=== PATIENT | male | born 1975 | race Caucasian/White ===

== ENCOUNTER → 2019-03-01 | Outpatient (CLI) | payer SELFPAY | LOC: RAD 10:33 | DX: M25.512 Pain in left shoulder (principal); W19.XXXA Unspecified fall, initial encounter ==

== ENCOUNTER 2020-07-11 14:37 | Emergency (ER) | payer SELFPAY ==
[~2020-07-11] VITALS: Ht 188 cm; Wt 109.1 kg
[~2020-07-11 14:37] MED LIST: GOOD NEIGHBOR200 M3 PO
[2020-07-11] MEDS ORDERED: NORCO 325 MG-51 TA1 PO (15:27)
[2020-07-11] MEDS ORDERED: ULTRAM50 M1 PO (16:15)
[2020-07-11 16:39] VITALS: BP 136/93
== END 2020-07-11 16:43 | disposition home or self-care (01) ==
LOC: ED 14:37
DX: M25.512 Pain in left shoulder (principal); F17.200 Nicotine dependence, unspecified, uncomplicated; W22.8XXA Striking against or struck by other objects, initial encounter
CPT/HCPCS: J2270

== ENCOUNTER → 2021-05-07 | Outpatient (CLI) | payer SELFPAY ==
[~2021-05-07] MED LIST changes: +LORAZEPAM1 M1 PO; +METOPROLOL SUC100 M1 PO; +NORCO 325 MG-51 TA1 PO; +SERTRALINE50 MG PO; +ULTRAM50 M1 PO
== END ==
LOC: RAD 08:53
DX: G89.29 Other chronic pain (principal); M25.562 Pain in left knee

== ENCOUNTER 2021-09-17 20:27 | Emergency (ER) | payer SELFPAY ==
[~2021-09-17 20:27] MED LIST changes: -LORAZEPAM1 M1 PO; -METOPROLOL SUC100 M1 PO; -SERTRALINE50 MG PO
[2021-09-17 20:58] LABS: BASO # 0.03 K/mm3 (0.02-0.10); EOS # 0.28 K/mm3 (0.04-0.40); EOS % 3.8 % (0.0-4.0); HEMATOCRIT 45.5 % (42.0-52.0); HEMOGLOBIN 15.4 g/dL (13.5-18.0); LYMPH# 2.13 K/mm3 (1.50-4.00); MEAN CELL VOLUME 93 fl (78-100); MEAN CORPUSCULAR HEMOGLOBIN 32 pg (27-31); MEAN CORPUSCULAR HGB CONC 34 g/dL (33-37); MEAN PLATELET VOLUME 10.7 fl (7.4-10.4); MONO # 0.58 K/mm3 (0.20-0.80); NEU # 4.33 K/mm3 (1.40-6.50); PLATELET COUNT 214 K/mm3 (130-400); RED BLOOD COUNT 4.89 M/mm3 (4.20-5.60); RED CELL DISTRIBUTION WIDTH 12.3 % (11.5-14.5); WHITE BLOOD COUNT 7.4 K/mm3 (4.8-10.8)
[2021-09-17 21:08] LABS: ALBUMIN 4.1 g/dL (3.5-5.0); POTASSIUM 4.1 mmol/L (3.5-5.1); SODIUM 143 mmol/L (136-145)
[2021-09-17 21:09] LABS: CALCIUM 9.8 mg/dL (8.3-10.5)
[2021-09-17 21:11] LABS: GLUCOSE 101 mg/dL (75-110); TOTAL PROTEIN 7.5 g/dL (6.4-8.3)
[2021-09-17 21:12] LABS: CARBON DIOXIDE 24 mmol/L (22-29); TOTAL BILIRUBIN 0.2 mg/dL (0.2-1.2)
[2021-09-17 21:13] LABS: ALCOHOL IN-HOUSE 217 mg/dL (<10)
[2021-09-17 21:15] LABS: URINE APPEARANCE CLEAR; URINE BILIRUBIN NEGATIVE (NEGATIVE); URINE BLOOD NEGATIVE (NEGATIVE); URINE COLOR YELLOW; URINE GLUCOSE NEGATIVE (NEGATIVE); URINE KETONE NEGATIVE (NEGATIVE); URINE LEUKOCYTE ESTERASE NEGATIVE (NEGATIVE); URINE NITRATE NEGATIVE (NEGATIVE); URINE PROTEIN(semi-quant) TRACE mg/dL (NEGATIVE); URINE UROBILINOGEN NORMAL (NORMAL)
[2021-09-17 21:16] LABS: URINE MUCUS PRESENT (NOT PRESENT); URINE WBC 0-1 /hpf (0-3)
[2021-09-17 21:16] LABS: AST-SGOT 23 U/L (5-34)
[2021-09-17 21:17] LABS: ALT/SGPT 23 U/L (0-55)
[2021-09-17 21:19] LABS: ACETAMINOPHEN < 1 ug/mL
[2021-09-18 05:36] VITALS: BP 149/97
[2021-09-19] MEDS ORDERED: METOPROLOL SUC100 M1 PO (19:05)
[2021-09-19] MEDS ORDERED: LORAZEPAM1 M1 PO (19:20)
[2021-09-19] MEDS ORDERED: SERTRALINE50 MG PO (19:20)
== END 2021-09-18 05:36 | disposition home or self-care (01) ==
LOC: ED 20:27
PROVIDERS: Nurse Practitioner Family
DX: F10.129 Alcohol abuse with intoxication, unspecified (principal); F15.10 Other stimulant abuse, uncomplicated; R45.851 Suicidal ideations; I10 Essential (primary) hypertension; F17.210 Nicotine dependence, cigarettes, uncomplicated

== ENCOUNTER 2021-09-19 14:25 | Emergency (ER) | payer SELFPAY ==
[~2021-09-19] VITALS: Wt 109.1 kg
[2021-09-19 15:08] LABS: BASO # 0.03 K/mm3 (0.02-0.10); EOS # 0.17 K/mm3 (0.04-0.40); HEMATOCRIT 47.1 % (42.0-52.0); HEMOGLOBIN 16.1 g/dL (13.5-18.0); LYMPH# 2.03 K/mm3 (1.50-4.00); MEAN CELL VOLUME 92 fl (78-100); MEAN CORPUSCULAR HEMOGLOBIN 32 pg (27-31); MEAN CORPUSCULAR HGB CONC 34 g/dL (33-37); MEAN PLATELET VOLUME 10.8 fl (7.4-10.4); MONO # 0.56 K/mm3 (0.20-0.80); NEU # 5.61 K/mm3 (1.40-6.50); PLATELET COUNT 228 K/mm3 (130-400); RED BLOOD COUNT 5.11 M/mm3 (4.20-5.60); RED CELL DISTRIBUTION WIDTH 12.2 % (11.5-14.5); WHITE BLOOD COUNT 8.4 K/mm3 (4.8-10.8)
[2021-09-19 15:18] LABS: ALBUMIN 4.1 g/dL (3.5-5.0); POTASSIUM 4.6 mmol/L (3.5-5.1); SODIUM 140 mmol/L (136-145)
[2021-09-19 15:19] LABS: CALCIUM 9.7 mg/dL (8.3-10.5)
[2021-09-19 15:20] LABS: GLUCOSE 102 mg/dL (75-110); TOTAL PROTEIN 7.5 g/dL (6.4-8.3)
[2021-09-19 15:21] LABS: CARBON DIOXIDE 25 mmol/L (22-29)
[2021-09-19 15:22] LABS: TOTAL BILIRUBIN 0.4 mg/dL (0.2-1.2)
[2021-09-19 15:24] LABS: ALCOHOL IN-HOUSE < 10 mg/dL (<10)
[2021-09-19 15:26] LABS: AST-SGOT 24 U/L (5-34)
[2021-09-19 15:27] LABS: ALT/SGPT 22 U/L (0-55)
[2021-09-19 15:31] LABS: ACETAMINOPHEN < 1 ug/mL
[2021-09-19 15:48] LABS: PH-URINE 5.5 (5.0 - 8.0); URINE APPEARANCE CLEAR; URINE BILIRUBIN NEGATIVE (NEGATIVE); URINE BLOOD NEGATIVE (NEGATIVE); URINE COLOR YELLOW; URINE GLUCOSE NEGATIVE (NEGATIVE); URINE KETONE NEGATIVE (NEGATIVE); URINE LEUKOCYTE ESTERASE NEGATIVE (NEGATIVE); URINE NITRATE NEGATIVE (NEGATIVE); URINE PROTEIN(semi-quant) NEGATIVE (NEGATIVE); URINE UROBILINOGEN NORMAL (NORMAL)
[2021-09-19] MEDS ORDERED: METOPROLOL SUC100 M1 PO (19:05)
[2021-09-19] MEDS ORDERED: SERTRALINE50 MG PO (19:20)
[2021-09-19] MEDS ORDERED: LORAZEPAM1 M1 PO (19:20)
[2021-09-19 19:26] VITALS: BP 153/116
== END 2021-09-19 19:27 | disposition home or self-care (01) ==
LOC: ED 14:25
PROVIDERS: Family Medicine
DX: I10 Essential (primary) hypertension (principal); F32.A Depression, unspecified; E11.9 Type 2 diabetes mellitus without complications; F17.210 Nicotine dependence, cigarettes, uncomplicated

== ENCOUNTER 2021-11-10 13:52 | Emergency (ER) | payer SELFPAY ==
[~2021-11-10] VITALS: Ht 188 cm; Wt 109.1 kg
[~2021-11-10 13:52] MED LIST changes: +LORAZEPAM1 M1 PO; +METOPROLOL SUC100 M1 PO; +SERTRALINE50 MG PO
[2021-11-10 14:41] LABS: BASO # 0.03 K/mm3 (0.02-0.10); EOS # 0.35 K/mm3 (0.04-0.40); EOS % 3.2 % (0.0-4.0); HEMATOCRIT 46.1 % (42.0-52.0); HEMOGLOBIN 15.7 g/dL (13.5-18.0); LYMPH# 1.84 K/mm3 (1.50-4.00); MEAN CELL VOLUME 93 fl (78-100); MEAN CORPUSCULAR HEMOGLOBIN 32 pg (27-31); MEAN CORPUSCULAR HGB CONC 34 g/dL (33-37); MEAN PLATELET VOLUME 10.5 fl (7.4-10.4); MONO # 0.69 K/mm3 (0.20-0.80); NEU # 8.02 K/mm3 (1.40-6.50); PLATELET COUNT 235 K/mm3 (130-400); RED BLOOD COUNT 4.95 M/mm3 (4.20-5.60); RED CELL DISTRIBUTION WIDTH 12.3 % (11.5-14.5); WHITE BLOOD COUNT 10.9 K/mm3 (4.8-10.8)
[2021-11-10 14:54] LABS: ALBUMIN 3.7 g/dL (3.5-5.0); POTASSIUM 4.2 mmol/L (3.5-5.1)
[2021-11-10 14:55] LABS: CALCIUM 9.1 mg/dL (8.3-10.5)
[2021-11-10 14:57] LABS: TOTAL PROTEIN 6.5 g/dL (6.4-8.3)
[2021-11-10 14:58] LABS: TOTAL BILIRUBIN 0.3 mg/dL (0.2-1.2)
[2021-11-10] MEDS ORDERED: LIDOCAINE 5%35.44 GM TP (15:29)
[2021-11-10] MEDS ORDERED: PREPARATION H HYDR1% TP (15:29)
[2021-11-10 16:00] VITALS: BP 137/87
== END 2021-11-10 16:00 | disposition home or self-care (01) ==
LOC: ED 13:52
PROVIDERS: Nurse Practitioner
DX: K64.5 Perianal venous thrombosis (principal); F17.200 Nicotine dependence, unspecified, uncomplicated; Z63.0 Problems in relationship with spouse or partner